=== PATIENT | female | born 1970 | race Caucasian/White ===

== ENCOUNTER 2018-06-25 01:20 | Observation (INO) | payer BC ==
[~2018-06-25] VITALS: Ht 154.9 cm; Wt 121.1 kg
[2018-06-25] VITALS (10 sets, daily range): BP systolic 107–145; BP diastolic 59–90
[~2018-06-25 01:20] MED LIST: DOCU100T19 PO; LISI20TA29 PO; OXYC-865 PO
[2018-06-25] MEDS ORDERED: PREGABALIN 150 MG CAPSULE PO ONE (06:30)
[2018-06-25] MEDS ORDERED: LIDOCAINE/SOD BICARB 8.4% SYR ID ONE (06:30)
[2018-06-25] MEDS ORDERED: ACETAMINOPHEN 500 MG TAB PO ONE (06:30)
[2018-06-25] MEDS ORDERED: NORMOSOL R SOLN(*) 1000 ML BAG 1,000 ML IV PRN (06:30)
[2018-06-25] MEDS ORDERED: FAMOTIDINE 20 MG TAB PO ONE (06:30)
[2018-06-25] MEDS ORDERED: MIDAZOLAM 2 MG/2 ML VIAL IVP PRN (06:30)
[2018-06-25] MEDS ORDERED: ceFAZolin(*) 2GM/D5W 50ML 50 ML IVPB ONE (06:30)
[2018-06-25] MEDS ORDERED: ROPIVACAINE 0.2% 400 MG/200ML 250 ML CONINFUS ONE (06:30)
[2018-06-25] MEDS ORDERED: LIDOCAINE MPF 1% 5 ML VIAL ONE (09:00)
[2018-06-25] MEDS ORDERED: PROPOFOL EMUL(*) 10MG/ML 20 ML 20 ML ONE (09:00)
[2018-06-25] MEDS ORDERED: ONDANSETRON 4 MG/2 ML VIAL ONE (09:00)
[2018-06-25] MEDS ORDERED: KETAMINE HCL-NS 50 MG/5 ML SYR ONE (09:00)
[2018-06-25] MEDS ORDERED: DEXAMETHASONE SOD PHOS 10MG/ML ONE (09:00)
[2018-06-25] MEDS ORDERED: fentaNYL CITR 100 MCG/2 ML AMP ONE ×2 (09:00→14:39)
[2018-06-25] MEDS ORDERED: ROPIVACAINE 0.2% 20 ML VIAL ONE (09:04)
[2018-06-25] MEDS ORDERED: ROCURONIUM BROM 10 MG/ML 10 ML ONE (09:30)
[2018-06-25] MEDS ORDERED: GLYCOPYRROLATE 1 MG/5 ML INJ ONE (12:55)
[2018-06-25] MEDS ORDERED: KETOROLAC 30 MG/ML VIAL ONE (14:39)
[2018-06-25] MEDS ORDERED: LIDO/EPI 1% MPF 1:200,000 30ML ONE (14:46)
[2018-06-25] MEDS: fentaNYL CITR 100 MCG/2 ML AMP ONE ×2 (14:54→14:59)
[2018-06-25] MEDS ORDERED: diphenhydrAMINE 25 MG CAP PO PRN (15:25)
[2018-06-25] MEDS ORDERED: KCL/D5LR 20 MEQ/1000 ML PREMIX 1,000 ML IV PRN (15:25)
[2018-06-25] MEDS ORDERED: ONDANSETRON 4 MG/2 ML VIAL IVP PRN (15:25)
[2018-06-25] MEDS ORDERED: MAGNESIUM HYDROXIDE* 30ML UDCP PO PRN (15:25)
[2018-06-25] MEDS ORDERED: BISACODYL 10 MG SUPP PR PRN (15:25)
[2018-06-25] MEDS ORDERED: ACETAMINOPHEN 500 MG TAB PO PRN (15:25)
[2018-06-25] MEDS ORDERED: KETOROLAC 30 MG/ML VIAL IVP PRN (15:25)
[2018-06-25] MEDS ORDERED: PROMETHAZINE 25 MG/ML 1 ML AMP IVP PRN (15:25)
[2018-06-25] MEDS ORDERED: FLUSH 10 ML SYR IVP PRN (15:25)
[2018-06-25] MEDS ORDERED: MAGNESIUM CITRATE 300 ML BTL PO PRN (15:25)
--- NOTE | 2018-06-25 15:35 | OPERATIVE REPORT 1 ---
EVENT DATE: June 25, 2018 SURGEON: Nir Lane MD ANESTHESIOLOGIST: Jose Anthony MD ANESTHESIA: General PREOPERATIVE DIAGNOSIS [id number]-[id number] degenerative arthritis of the ankle. POSTOPERATIVE DIAGNOSIS [id number]-oc-[id number] degenerative arthritis of the ankle. PROCEDURE PERFORMED Right total ankle. ESTIMATED BLOOD LOSS Minimal. FLUIDS Minimal. DESCRIPTION OF OPERATION The patient was brought to the operating room and placed in the supine position. Bump placed under the right hip. The right lower extremity was prepped and draped in the normal sterile fashion using Prevail. A sterile stockinette, sterile U-drape, and sterile extremity drape placed over the lower extremity. Stockinette was incised right above the knee and held with Coban. Esmarch was used to exsanguinate the lower extremity. The tourniquet was turned up to 300 mmHg. Skin was incised directly laterally to the anterior tibialis tendon. An incision was made directly midline just lateral to the anterior tibialis tendon. Skin was incised and taken down to the subcutaneous tissue. The subcutaneous tissue was bluntly dissected down to the neurovascular bundle. The neurovascular bundle was identified. It was bluntly dissected out and pushed laterally. I then subperiosteally dissected around the ankle. Interestingly enough, at this point it was found that actually the cushion that was present in the ankle was not cartilage. It was complete scar. Anterior, posterior, and in the ankle joint itself there was significant scarring and actually very little cartilage. At this point, we took off the anterior spurring of the tibia. I was able to get just down to the distal tibial plafond. Once I had that, I placed a pin into the tibial tubercle up above perpendicular and parallel to the axes. I drilled first and then placed a pin down there across the tibial tubercle. At this point, I placed an alignment guide distally and then placed a pin through the medial hole, making sure the alignment guide was in proper varus/valgus alignment and parallel to the tibia. Once I had that in good alignment, I then brought it up 9 mm from the distal tibial plafond and tightened all the screws down. At this point, I put my sizing jig, brought fluoroscopy in AP and lateral, felt that the rotation was good and that the size that would be appropriate would be zero. We tried a one guide, and it was way too big. It was taking too much medially and too much laterally; therefore, a zero was our only option. I placed the zero tibial distal cutting guide on, brought fluoroscopy in AP and lateral, made sure it was tight, and made sure I had it in good position. I actually brought the distal tibia cut down just by a mm and checked varus and valgus. I felt I had to go slightly more valgus and, therefore, changed the alignment guide. Once that was in proper position, I then placed my pins in both medial and lateral gutters. I cut my distal tibia, cut my medial and lateral gutters of the distal tibia as well, removed the cutting guide, and used a rongeur to remove 90% of the distal tibial bone without any difficulty. I was not able to get the posterior capsule bone due to the tightness of the ankle. At this point, I decided to set my distal tibia guide to the talus guide, placed my talar pin in, checked under fluoroscopy in the lateral, and made sure I had my talar pin in the right position, which I felt I did. I then placed my talar cutting guide and balanced it with the lamina spreaders to make sure I had good alignment. I brought fluoroscopy in to make sure the cut was appropriate, which it was. At this point, I pinned the cutting guide, removed the cutting guide, and cut over top of the pins with malleables both medially and laterally to protect the medial and lateral sides. Once I cut the talus, I then removed all the pins. From here, I cleaned the rongeur out and made sure I had good positioning and a good clean, flat surface. I then cleaned the anterior spurs off the tibia, placed my anterior chamfer guide, checked under fluoroscopy, and had excellent position for anterior chamfer guide. I then pinned the anterior chamfer guide and drilled the anterior chamfer without any difficulty. I removed the anterior chamfer guide, used a rongeur to remove both medial and lateral sides so it was a nice, flat surface. At this point, I put my lateral chamfer cutting guide on and the turner machine operator. I checked on fluoroscopy, made sure I had the guide in the right position, and then pinned it. I drilled the anthony and then cut my lateral chamfer. I used a rongeur to debride the lateral chamfer site and the medial chamfer. I then washed out all bone, and from here now I could get back to the posterior aspect of the ankle joint, which then I removed everything off the posterior aspect of the ankle. I got all the bone out. At this point, we sized it again, made sure it was a zero. We put the trial in both on the talus and tibia, found to have excellent position. I did feel it was a very tight ankle; therefore, I did a percutaneous Achilles tendon lengthening with three poke holes, one going medial, one going lateral, and one going medial again. From here, I was able to get her up to about 5 degrees of neutral. Then through the trials, I drilled my tibial fin two holes, and the shark fin drill was done. Once that was done, I then rongeured and washed out the whole ankle using normal saline pulse lavage. At this point, we decided an 8 mm with zero talus and tibia was the right combination. We then placed the implants in without any difficulty. I took x-rays and found to have excellent alignment both medially and laterally, and on the AP, found to have excellent varus/valgus and good motion. We closed the retinaculum using 2-0 Vicryl, closed the subcuticular with 3-0 Monocryl, mateo for the skin, and Adaptic 4 x 4's in a big, bulky dressing. Patient went to Recovery. No complications. JOSE
--- NOTE | 2018-06-25 17:16 | RADIOLOGY IMAGING REPORT ---
FACILITY: [facility] PATIENT NAME: Mitali Hernandez : 1970 MR: [id number] V: [id number] EXAM DATE: [id number] ORDERING PHYSICIAN: TOLU MARINA TECHNOLOGIST: Location: [facility] - [place] Patient: Mitali Hernandez : 1970 Visit/Account:[id number] Date of Sevice: 06/25/2018 Exam: C-ARM FLUORO 1 HR Indication: RIGHT TOTAL ANKLE, RAD Comparison: None available Findings: Fluoroscopy is provided for right total ankle arthroplasty. Images show 2 part component in good alignment. Fluoroscopy time 152.5 seconds DOSE: DAP was 0.90133 mGy*m2. IMPRESSION: Procedural fluoroscopy Report Dictated By: Frank Wright at 06/25/2018 5:08 PM Report E-Signed By: Frank Wright at 06/25/2018 5:13 PM WSN:[id number]
[2018-06-25] MEDS: ceFAZolin(*) 1 GM VIAL 1 GM in NS(*) 0.9% 100 ML ADDVANT BAG 100 ML IVPB SCH (19:55)
[2018-06-26] MEDS: ceFAZolin(*) 1 GM VIAL 1 GM in NS(*) 0.9% 100 ML ADDVANT BAG 100 ML IVPB SCH (04:25)
[2018-06-26 07:15] VITALS: BP 132/72
--- NOTE | 2018-06-26 10:24 | DISCHARGE SUMMARY ---
EVENT DATE: June 25, 2018 HISTORY OF PRESENT ILLNESS Mitali underwent a right total ankle replacement. She is doing extremely well. Overnight she had almost no pain. She did have to take one OxyContin but otherwise block is working well. She has been up to the bathroom twice and passed physical therapy and will be sent home nonweightbearing for eight weeks. She will follow up in two weeks to see Dr. Lane. She already has all of her prescriptions at home and she will be nonweightbearing. I will see her back in two weeks' time. The dressing is to stay on until we see her back in recovery. She is to call the emergency line if she has a fever over 101 or increasing pain that is not taken care of with pain medications. JOSE
[2018-06-26 11:14] VITALS: BP 123/77
== END 2018-06-26 09:47 | disposition home or self-care (01) ==
LOC: OR 01:20 → INTOOBSV 16:20 → OBSVTOIN 16:20 → MED 16:20
PROVIDERS: ADMIT Orthopaedic Surgery; ATTEND Orthopaedic Surgery
DX: M19.071 Primary osteoarthritis, right ankle and foot (principal); I10 Essential (primary) hypertension; F17.210 Nicotine dependence, cigarettes, uncomplicated
CPT/HCPCS: 27702; 76000; 76942; 97116; 97161; C1776; G0378; J0690; J1100; J1885; J2001; J2250; J2405; J2704; J2795; J3010; J3490; J7050